=== PATIENT | female | born 1955 | race Caucasian/White ===

== ENCOUNTER 2022-06-08 14:49 | Inpatient (IN) | payer MEDICARE ==
[~2022-06-08] VITALS: Ht 165.1 cm; Wt 115.0 kg
[2022-06-08 16:21] LABS: BASOPHILS % (AUTO) 0.4 % (0.0-2.0); EOSINOPHILS % (AUTO) 0.6 % (1.0-6.0); HEMATOCRIT 44.6 % (36-46); HEMOGLOBIN 15.1 g/dL (12.0-16.0); LYMPHOCYTES # (AUTO) 1.7 K/uL (1.0-4.8); LYMPHOCYTES % (AUTO) 20.7 % (22.0-44.0); MEAN CORPUSCULAR HEMOGLOBIN 34.2 pg (26.0-34.0); MEAN CORPUSCULAR HGB CONC 33.9 G/dL (31.0-37.0); MEAN CORPUSCULAR VOLUME 101 fL (80-100); MONOCYTES # (AUTO) 0.5 K/uL (0.1-1.0); MONOCYTES % (AUTO) 5.7 % (2.0-9.0); NEUTROPHILS % (AUTO) 72.6 % (40.0-70.0); PLATELET COUNT (AUTO) 228 K/uL (150-450); RED BLOOD CELL COUNT(AUTO) 4.41 MIL/uL (4.00-5.20); RED CELL DISTRIBUTION WIDTH 13.3 % (11.5-14.5)
[2022-06-08 16:36] LABS: PROTHROMBIN TIME 10.3 SEC (9.4-11.6)
[2022-06-08 16:42] LABS: B-TYPE NATRIURETIC PEPTIDE 32 pg/mL (0-100)
[2022-06-08 16:45] LABS: ANION GAP 1 mmol/L (8-16); CALCIUM, TOTAL 9.2 mg/dL (8.8-10.5); CARBON DIOXIDE 39 mmol/L (22-29); CHLORIDE 96 mmol/L (98-107); CREATININE 0.82 mg/dL (0.60-1.30); GLOMERULAR FILTR. RATE CALC > 60 mL/min (>60); GLUCOSE,RANDOM 135 mg/dL (70-110); SODIUM SERUM 136 mmol/L (136-145); UREA NITROGEN, BLOOD 6 mg/dL (7-18)
[2022-06-08 16:59] LABS: ALANINE AMINOTRANSFERASE 71 U/L (12-78); ALBUMIN 3.5 g/dL (3.4-5.0); ALKALINE PHOSPHATASE 216 U/L (46-116); ASPARTATE AMINOTRANSFERASE 65 U/L (15-37); BILIRUBIN,TOTAL 0.2 mg/dL (0.1-1.0); CREATINE KINASE, TOTAL ONLY 99 U/L (26-192); TOTAL PROTEIN, SERUM 7.5 g/dL (6.4-8.2)
[2022-06-08] MEDS ORDERED: PIPERACILLIN/TAZO 3.375 GM/D5W 50 ML IV ONE (19:45)
[2022-06-08] MEDS ORDERED: ACETAMINOPHEN 325 MG TABLET PO PRN ×2 (19:45→20:15)
[2022-06-08] MEDS ORDERED: HYDROCODONE/ACETAMINOPHEN 5-325 MG TABLET PO PRN (19:45)
[2022-06-08] MEDS ORDERED: ONDANSETRON HCL 4 MG/2 ML VIAL IVP PRN ×2 (19:45→20:15)
[2022-06-08] MEDS ORDERED: VANCOMYCIN 1GM/WATER(PEG/NADA) 200 ML IV ONE (19:45)
[2022-06-08] MEDS ORDERED: 0.9% SODIUM CHLORIDE 10 ML SYRINGE IVP PRN (19:45)
[2022-06-08 19:50] LABS: COVID AG,FIA SOURCE NASAL SWAB
[2022-06-08] MEDS ORDERED: HYDROCODONE/ACETAMINOPHEN 5-325 MG TABLET PO ONE (20:00)
[2022-06-08] MEDS ORDERED: RINGERS SOLUTION,LACTATED 1,000 ML IV SCH (20:15)
[2022-06-08 20:30] LABS: LACTIC ACID 0.9 mmol/L (0.4-2.0)
[2022-06-08 20:43] LABS: C-REACTIVE PROTEIN QUANT 4.53 mg/dL (0.00-0.30)
[2022-06-08] MEDS: DOCUSATE SODIUM 100 MG CAPSULE PO SCH (21:00)
[2022-06-08] MEDS: MORPHINE SULFATE 2 MG/ML SYRINGE IVP PRN (21:43)
[2022-06-08] MEDS: CefTRIAXone 1 GM/DEXTROSE 50 ML IV SCH (21:44)
[2022-06-08 22:18] VITALS: BP 145/73
[2022-06-09] MEDS: HEPARIN SODIUM,PORCINE 5,000 UNITS/ML VIAL SQ SCH ×3 (00:38→15:24)
[2022-06-09] MEDS: HYDROCODONE/ACETAMINOPHEN 5-325 MG TABLET PO PRN ×4 (00:38→20:21)
[2022-06-09 02:04] LABS: APPEARANCE,URINE CLEAR (CLEAR); BILIRUBIN,URINE NEGATIVE (NEGATIVE); GLUCOSE, URINE (UA) NEGATIVE (NEGATIVE); KETONES,URINE NEGATIVE (NEGATIVE); LEUKOCYTE ESTERASE ,URINE LARGE (NEGATIVE); NITRATE,URINE NEGATIVE (NEGATIVE); OCCULT BLOOD,URINE NEGATIVE (NEGATIVE); PH,URINE 6.5 (5.0-8.0); PROTEIN,URINE NEGATIVE (NEGATIVE); SPECIFIC GRAVITIY, URINE 1.019 (1.003-1.030); UROBILINOGEN,URINE <=1.0 mg/dL (<=1.0)
[2022-06-09 02:17] LABS: BACTERIA,URINE Few /HPF (None Seen); RBC,URINE 0-2 /HPF (0-2); SQUAMOUS EPITHELIAL CELL,UR Few /LPF (None Seen)
[2022-06-09] MEDS: MORPHINE SULFATE 2 MG/ML SYRINGE IVP PRN ×3 (03:48→15:24)
[2022-06-09 04:04] VITALS: BP 137/79
[2022-06-09 07:47] VITALS: BP 149/85
[2022-06-09] MEDS ORDERED: IOHEXOL 350 MG/ML 100 ML VIAL ONE (08:00)
[2022-06-09] MEDS ORDERED: SODIUM CHLORIDE 0.9% 100 ML ONE (08:00)
[2022-06-09] MEDS: VANCOMYCIN HCL 1.25 GM in DEXTROSE 5%-WATER 250 ML IV SCH ×2 (09:07→20:22)
[2022-06-09] MEDS: DOCUSATE SODIUM 100 MG CAPSULE PO SCH ×2 (09:14→20:21)
[2022-06-09] MEDS ORDERED: HYDR-4065 PO (12:49)
[2022-06-09] MEDS ORDERED: METH20TA45 PO (12:49)
[2022-06-09] MEDS ORDERED: ATOR20TA65 PO (12:49)
[2022-06-09] MEDS ORDERED: DULO-114 PO (12:49)
[2022-06-09] MEDS ORDERED: ARIP5TAB37 PO (12:49)
[2022-06-09] MEDS ORDERED: BUPR-317 PO (12:49)
[2022-06-09] MEDS ORDERED: FURO20TA4 PO (12:49)
[2022-06-09] MEDS ORDERED: CARV3.1231 PO (12:49)
[2022-06-09] MEDS ORDERED: NICO-803 TD (12:49)
[2022-06-09] MEDS ORDERED: GABA600T10 PO (12:49)
[2022-06-09] MEDS: ATORVASTATIN CALCIUM 20 MG TABLET PO SCH (13:49)
[2022-06-09] MEDS: DULoxetine HCL 30 MG CAPSULE PO SCH (13:49)
[2022-06-09] MEDS: BuPROPion HCL XL 150 MG ER TABLET PO SCH (13:49)
[2022-06-09] MEDS: NICOTINE 21 MG/24 HOUR PATCH TD SCH (13:49)
[2022-06-09] MEDS: GABAPENTIN 300 MG CAPSULE PO SCH (13:49)
[2022-06-09] MEDS: VENLAFAXINE HCL 150 MG ER CAPSULE PO SCH ×2 (13:49→20:21)
[2022-06-09 15:19] VITALS: BP 132/79
[2022-06-09 19:57] VITALS: BP 143/78
[2022-06-09] MEDS: CefTRIAXone 1 GM/DEXTROSE 50 ML IV SCH (22:43)
[2022-06-10] MEDS: HEPARIN SODIUM,PORCINE 5,000 UNITS/ML VIAL SQ SCH ×5 (00:06→23:23)
[2022-06-10] MEDS: HYDROCODONE/ACETAMINOPHEN 5-325 MG TABLET PO PRN ×5 (01:13→18:51)
[2022-06-10 04:09] VITALS: BP 143/82
[2022-06-10] MEDS: DOCUSATE SODIUM 100 MG CAPSULE PO SCH ×2 (08:07→19:52)
[2022-06-10] MEDS: GABAPENTIN 300 MG CAPSULE PO SCH (08:07)
[2022-06-10] MEDS: NICOTINE 21 MG/24 HOUR PATCH TD SCH (08:07)
[2022-06-10] MEDS: VENLAFAXINE HCL 150 MG ER CAPSULE PO SCH ×2 (08:07→19:52)
[2022-06-10] MEDS: ATORVASTATIN CALCIUM 20 MG TABLET PO SCH (08:08)
[2022-06-10] MEDS: BuPROPion HCL XL 150 MG ER TABLET PO SCH (08:08)
[2022-06-10] MEDS: DULoxetine HCL 30 MG CAPSULE PO SCH (08:08)
[2022-06-10] MEDS: VANCOMYCIN HCL 1.25 GM in DEXTROSE 5%-WATER 250 ML IV SCH ×2 (08:10→19:52)
[2022-06-10 08:40] LABS: ANION GAP 7 mmol/L (8-16); CALCIUM, TOTAL 8.5 mg/dL (8.8-10.5); CARBON DIOXIDE 34 mmol/L (22-29); CHLORIDE 100 mmol/L (98-107); CREATININE 0.66 mg/dL (0.60-1.30); GLOMERULAR FILTR. RATE CALC > 60 mL/min (>60); GLUCOSE,RANDOM 135 mg/dL (70-110); POTASSIUM 3.7 mmol/L (3.5-5.1); SODIUM SERUM 141 mmol/L (136-145); UREA NITROGEN, BLOOD 6 mg/dL (7-18)
[2022-06-10 12:42] VITALS: BP 138/77
[2022-06-10 16:30] VITALS: BP 150/84
[2022-06-10 20:20] VITALS: BP 146/100
[2022-06-10 21:56] VITALS: BP 146/82
[2022-06-10] MEDS: CefTRIAXone 1 GM/DEXTROSE 50 ML IV SCH (22:51)
[2022-06-11] MEDS: HYDROCODONE/ACETAMINOPHEN 5-325 MG TABLET PO PRN ×5 (00:32→19:47)
[2022-06-11 04:37] VITALS: BP 142/81
[2022-06-11 08:00] VITALS: BP 149/59
[2022-06-11 08:08] LABS: BASOPHILS % (AUTO) 0.5 % (0.0-2.0); EOSINOPHILS % (AUTO) 0.8 % (1.0-6.0); HEMATOCRIT 42.4 % (36-46); HEMOGLOBIN 14.6 g/dL (12.0-16.0); LYMPHOCYTES # (AUTO) 1.6 K/uL (1.0-4.8); LYMPHOCYTES % (AUTO) 22.6 % (22.0-44.0); MEAN CORPUSCULAR HEMOGLOBIN 34.7 pg (26.0-34.0); MEAN CORPUSCULAR HGB CONC 34.4 G/dL (31.0-37.0); MEAN CORPUSCULAR VOLUME 101 fL (80-100); MONOCYTES # (AUTO) 0.4 K/uL (0.1-1.0); MONOCYTES % (AUTO) 6.4 % (2.0-9.0); NEUTROPHILS # (AUTO) 4.9 K/uL (1.8-7.7); NEUTROPHILS % (AUTO) 69.7 % (40.0-70.0); PLATELET COUNT (AUTO) 212 K/uL (150-450); RED CELL DISTRIBUTION WIDTH 13.8 % (11.5-14.5)
[2022-06-11 08:26] LABS: ANION GAP 8 mmol/L (8-16); CARBON DIOXIDE 31 mmol/L (22-29); CHLORIDE 100 mmol/L (98-107); CREATININE 0.76 mg/dL (0.60-1.30); GLUCOSE,RANDOM 207 mg/dL (70-110); POTASSIUM 3.9 mmol/L (3.5-5.1); SODIUM SERUM 139 mmol/L (136-145); UREA NITROGEN, BLOOD 8 mg/dL (7-18)
[2022-06-11 08:27] LABS: CALCIUM, TOTAL 9.1 mg/dL (8.8-10.5); GLOMERULAR FILTR. RATE CALC > 60 mL/min (>60)
[2022-06-11] MEDS ORDERED: HYDROCODONE/ACETAMINOPHEN 5-325 MG TABLET PO PRN (09:00)
[2022-06-11] MEDS: VANCOMYCIN HCL 1.25 GM in DEXTROSE 5%-WATER 250 ML IV SCH ×2 (09:04→19:47)
[2022-06-11] MEDS: DOCUSATE SODIUM 100 MG CAPSULE PO SCH ×2 (09:04→20:42)
[2022-06-11] MEDS: VENLAFAXINE HCL 150 MG ER CAPSULE PO SCH ×2 (09:05→19:47)
[2022-06-11] MEDS: BuPROPion HCL XL 150 MG ER TABLET PO SCH (09:05)
[2022-06-11] MEDS: GABAPENTIN 300 MG CAPSULE PO SCH (09:05)
[2022-06-11] MEDS: DULoxetine HCL 30 MG CAPSULE PO SCH (09:05)
[2022-06-11] MEDS: ATORVASTATIN CALCIUM 20 MG TABLET PO SCH (09:05)
[2022-06-11] MEDS: HEPARIN SODIUM,PORCINE 5,000 UNITS/ML VIAL SQ SCH ×2 (09:06→16:30)
[2022-06-11] MEDS: NICOTINE 21 MG/24 HOUR PATCH TD SCH (09:06)
[2022-06-11 16:00] VITALS: BP 156/90
[2022-06-11 19:00] LABS: GLUCOMETER DEV NAME(LOC) 6N.1; GLUCOSE,POINT OF CARE 263 MG/DL (70-110)
[2022-06-11 20:30] VITALS: BP 148/91
[2022-06-11] MEDS: CefTRIAXone 1 GM/DEXTROSE 50 ML IV SCH (23:03)
[2022-06-12] MEDS: HEPARIN SODIUM,PORCINE 5,000 UNITS/ML VIAL SQ SCH ×4 (00:12→22:18)
[2022-06-12] MEDS: HYDROCODONE/ACETAMINOPHEN 5-325 MG TABLET PO PRN ×5 (00:13→20:57)
[2022-06-12 03:55] VITALS: BP 144/85
[2022-06-12 07:55] VITALS: BP 166/94
[2022-06-12 08:04] LABS: ANION GAP 8 mmol/L (8-16); CALCIUM, TOTAL 9.1 mg/dL (8.8-10.5); CARBON DIOXIDE 32 mmol/L (22-29); CHLORIDE 100 mmol/L (98-107); CREATININE 0.75 mg/dL (0.60-1.30); GLOMERULAR FILTR. RATE CALC > 60 mL/min (>60); GLUCOSE,RANDOM 143 mg/dL (70-110); POTASSIUM 3.9 mmol/L (3.5-5.1); SODIUM SERUM 140 mmol/L (136-145); UREA NITROGEN, BLOOD 8 mg/dL (7-18)
[2022-06-12] MEDS: VANCOMYCIN HCL 1.25 GM in DEXTROSE 5%-WATER 250 ML IV SCH ×2 (08:55→19:53)
[2022-06-12] MEDS: VENLAFAXINE HCL 150 MG ER CAPSULE PO SCH ×2 (08:56→19:52)
[2022-06-12] MEDS: ATORVASTATIN CALCIUM 20 MG TABLET PO SCH (08:56)
[2022-06-12] MEDS: DULoxetine HCL 30 MG CAPSULE PO SCH (08:56)
[2022-06-12] MEDS: BuPROPion HCL XL 150 MG ER TABLET PO SCH (08:56)
[2022-06-12] MEDS: GABAPENTIN 300 MG CAPSULE PO SCH (08:57)
[2022-06-12] MEDS: NICOTINE 21 MG/24 HOUR PATCH TD SCH (08:58)
[2022-06-12] MEDS: DOCUSATE SODIUM 100 MG CAPSULE PO SCH ×2 (09:00→19:53)
[2022-06-12 15:32] VITALS: BP 152/81
[2022-06-12 20:57] VITALS: BP 167/98
[2022-06-12] MEDS: CefTRIAXone 1 GM/DEXTROSE 50 ML IV SCH (22:17)
[2022-06-13] MEDS: HYDROCODONE/ACETAMINOPHEN 5-325 MG TABLET PO PRN ×6 (01:00→22:09)
[2022-06-13 04:42] VITALS: BP 158/92
[2022-06-13 07:17] LABS: ANION GAP 6 mmol/L (8-16); CALCIUM, TOTAL 9.3 mg/dL (8.8-10.5); CARBON DIOXIDE 32 mmol/L (22-29); CHLORIDE 95 mmol/L (98-107); CREATININE 0.67 mg/dL (0.60-1.30); GLOMERULAR FILTR. RATE CALC > 60 mL/min (>60); GLUCOSE,RANDOM 158 mg/dL (70-110); POTASSIUM 3.9 mmol/L (3.5-5.1); SODIUM SERUM 133 mmol/L (136-145); UREA NITROGEN, BLOOD 10 mg/dL (7-18)
[2022-06-13] MEDS: VANCOMYCIN HCL 1.25 GM in DEXTROSE 5%-WATER 250 ML IV SCH ×2 (08:20→19:44)
[2022-06-13] MEDS: DULoxetine HCL 30 MG CAPSULE PO SCH (08:22)
[2022-06-13] MEDS: DOCUSATE SODIUM 100 MG CAPSULE PO SCH ×2 (08:23→19:45)
[2022-06-13] MEDS: ATORVASTATIN CALCIUM 20 MG TABLET PO SCH (08:23)
[2022-06-13] MEDS: GABAPENTIN 300 MG CAPSULE PO SCH (08:23)
[2022-06-13] MEDS: BuPROPion HCL XL 150 MG ER TABLET PO SCH (08:23)
[2022-06-13] MEDS: VENLAFAXINE HCL 150 MG ER CAPSULE PO SCH ×2 (08:23→19:45)
[2022-06-13] MEDS: HEPARIN SODIUM,PORCINE 5,000 UNITS/ML VIAL SQ SCH ×3 (08:26→23:36)
[2022-06-13] MEDS: NICOTINE 21 MG/24 HOUR PATCH TD SCH (08:26)
[2022-06-13 08:37] VITALS: BP 156/73
[2022-06-13 16:09] VITALS: BP 153/76
[2022-06-13 20:01] VITALS: BP 147/82
[2022-06-13] MEDS ORDERED: SODIUM CHLORIDE 0.9% 500 ML IV ONE (22:07)
[2022-06-13] MEDS: CefTRIAXone 1 GM/DEXTROSE 50 ML IV SCH (22:09)
[2022-06-14] MEDS: HYDROCODONE/ACETAMINOPHEN 5-325 MG TABLET PO PRN ×3 (02:53→14:47)
[2022-06-14 04:52] VITALS: BP 144/80
[2022-06-14 07:25] LABS: ANION GAP 6 mmol/L (8-16); CALCIUM, TOTAL 9.2 mg/dL (8.8-10.5); CARBON DIOXIDE 31 mmol/L (22-29); CHLORIDE 98 mmol/L (98-107); CREATININE 0.85 mg/dL (0.60-1.30); GLOMERULAR FILTR. RATE CALC > 60 mL/min (>60); GLUCOSE,RANDOM 258 mg/dL (70-110); POTASSIUM 3.8 mmol/L (3.5-5.1); SODIUM SERUM 135 mmol/L (136-145); UREA NITROGEN, BLOOD 13 mg/dL (7-18); VANCOMYCIN,RANDOM 15.1 mcg/mL (25.0-50.0)
[2022-06-14] MEDS: DOCUSATE SODIUM 100 MG CAPSULE PO SCH (08:44)
[2022-06-14] MEDS: GABAPENTIN 300 MG CAPSULE PO SCH (08:44)
[2022-06-14] MEDS: HEPARIN SODIUM,PORCINE 5,000 UNITS/ML VIAL SQ SCH (08:44)
[2022-06-14] MEDS: VENLAFAXINE HCL 150 MG ER CAPSULE PO SCH (08:44)
[2022-06-14] MEDS: DULoxetine HCL 30 MG CAPSULE PO SCH (08:44)
[2022-06-14] MEDS: ATORVASTATIN CALCIUM 20 MG TABLET PO SCH (08:44)
[2022-06-14] MEDS: BuPROPion HCL XL 150 MG ER TABLET PO SCH (08:44)
[2022-06-14] MEDS: NICOTINE 21 MG/24 HOUR PATCH TD SCH (08:45)
[2022-06-14] MEDS: VANCOMYCIN HCL 1.25 GM in DEXTROSE 5%-WATER 250 ML IV SCH (08:45)
[2022-06-14 09:00] VITALS: BP 148/90
[2022-06-14] MEDS ORDERED: VANC1IV IV (13:24)
== END 2022-06-14 15:40 | DRG 603 ==
LOC: EMS 14:51 → 6N 21:35 → EMS 21:49
PROVIDERS: ADMIT Internal Medicine; ATTEND Internal Medicine
DX: L03.115 Cellulitis of right lower limb (principal); E87.3 Alkalosis; Z68.41 Body mass index [BMI] 40.0-44.9, adult; Z20.822 Contact with and (suspected) exposure to COVID-19; E66.01 Morbid (severe) obesity due to excess calories; F32.A Depression, unspecified; E78.5 Hyperlipidemia, unspecified; I11.0 Hypertensive heart disease with heart failure; I50.9 Heart failure, unspecified; Z79.899 Other long term (current) drug therapy; Z87.891 Personal history of nicotine dependence; Z88.0 Allergy status to penicillin
CPT/HCPCS: 71045; 73701; 80048; 80053; 80202; 81001; 82550; 82962; 83036; 83605; 83880; 84484; 85025; 85610; 85651; 85730; 86140; 87040; 93005; 93306; 93925; 93970; 97110; 97116; 97162; 97530; 99285; J0696; J1644; J2270; J2543; J3370; J7040; J7050; J7060; J7120; Q9967; 36415-L1; 36415-TC